=== PATIENT | female | born 1995 | race African-American/Black ===

== ENCOUNTER 2022-11-04 12:50 | Emergency (ER) | payer OTHER ==
[2022-11-04 13:03] VITALS: BP 120/82; PULSE 99; RESP 18; TEMP 98.1; BMI 36.1
[2022-11-04] MEDS ORDERED: ALBUTEROL SO4 2.5/IPRATROPIUM 0.5 INH SOL 3 ML VIAL.NEB. NEB ONE (16:05)
[2022-11-04] MEDS: ALBUTEROL SO4 2.5/IPRATROPIUM 0.5 INH SOL 3 ML VIAL.NEB. NEB SCH (16:12)
== END 2022-11-04 17:03 | disposition home or self-care (01) ==
LOC: JER 12:50 → JERFT 12:50
PROC: 3E0F7GC Introduction of Other Therapeutic Substance into Respiratory Tract, Via Natural or Artificial Opening (ICD-10-PCS; principal; 2022-11-04)
DX: J45.909 Unspecified asthma, uncomplicated (principal); J06.9 Acute upper respiratory infection, unspecified
CPT/HCPCS: 0241U-QW; 71046-TC-FY; 99284-25

== ENCOUNTER 2023-09-04 00:03 | Emergency (ER) | payer OTHER ==
[2023-09-04 00:07] VITALS: BP 122/74; PULSE 88; RESP 20; TEMP 98.6; BMI 30.7
== END 2023-09-04 01:23 | disposition home or self-care (01) ==
LOC: JER 00:03
DX: Z20.822 Contact with and (suspected) exposure to COVID-19 (principal)
CPT/HCPCS: 0241U-QW; 99283-25

== ENCOUNTER 2023-10-30 08:21 | Emergency (ER) | payer OTHER ==
[2023-10-30 08:31] VITALS: BP 101/74; PULSE 74; RESP 18; TEMP 98.7; BMI 35.2
[2023-10-30] MEDS: SODIUM CHLORIDE 0.9% 500 ML INFUS.BAG IV ONE (09:21)
[2023-10-30 09:56] LABS: BASO % 0.8 % (0-2.0); EOS % 0.7 % (0-4.5); HEMATOCRIT 36.8 % (32.4-45.2); HEMOGLOBIN 12.3 GM/dL (10.7-15.3); LYMPH % 34.7 % (8-40); MCH 26.3 pg (25.7-33.7); MCHC 33.5 g/dl (32.0-36.0); MEAN CELL VOLUME 78.4 fl (80-96); MEAN PLT VOLUME 8.9 fl (7.5-11.1); MONO % 7.6 % (3.8-10.2); NEUT % 56.2 % (42.8-82.8); PLATELET COUNT 274 10^3/uL (134-434); RBC 4.69 M/mm3 (3.60-5.2); RDW 14.6 % (11.6-15.6); WHITE BLOOD COUNT 4.3 K/mm3 (4.0-10.0)
[2023-10-30 09:57] LABS: POTASSIUM 3.7 mmol/L (3.5-5.1)
[2023-10-30 09:59] LABS: BLOOD UREA NITROGEN 7.4 mg/dL (7-18); CALCIUM 8.8 mg/dL (8.5-10.1)
[2023-10-30 10:00] LABS: ALBUMIN 3.6 g/dl (3.4-5.0)
[2023-10-30 10:03] LABS: CREATININE 0.7 mg/dL (0.55-1.3)
[2023-10-30 10:05] LABS: BILIRUBIN,TOTAL 0.6 mg/dL (0.2-1); TOT PROT 7.2 g/dl (6.4-8.2)
== END 2023-10-30 11:04 | disposition home or self-care (01) ==
LOC: JER 08:21
DX: E86.0 Dehydration (principal); R42 Dizziness and giddiness; R63.0 Anorexia
CPT/HCPCS: 36415; 80053; 84703; 85025

== ENCOUNTER 2024-09-02 07:56 | Emergency (ER) | payer OTHER ==
[2024-09-02] MEDS ORDERED: ONDANSETRON *ODT* 4 MG TABLET ONE (08:47)
[2024-09-02 08:50] VITALS: BP 108/88; PULSE 70; RESP 16; TEMP 98.6; BMI 37.2
[2024-09-02] MEDS: ONDANSETRON *ODT* 4 MG TABLET SL ONE (08:58)
[2024-09-02] MEDS ORDERED: LOPERAMIDE HCL 2 MG CAPSULE ONE (08:58)
[2024-09-02] MEDS: LOPERAMIDE HCL 2 MG CAPSULE PO ONE (09:01)
[2024-09-02 13:07] LABS: HIV INTERPRETATION NEGATIVE (NEGATIVE)
== END 2024-09-02 10:13 | disposition home or self-care (01) ==
LOC: JER 07:56
DX: K52.9 Noninfective gastroenteritis and colitis, unspecified (principal); R11.2 Nausea with vomiting, unspecified; Z20.822 Contact with and (suspected) exposure to COVID-19
CPT/HCPCS: 0241U-QW; 36415; 86803; 87389; 99283-25; Q0162

== ENCOUNTER 2024-12-03 18:35 | Emergency (ER) | payer OTHER ==
[2024-12-03 18:46] VITALS: BP 121/74; PULSE 81; RESP 20; TEMP 98.1; BMI 37.2
[2024-12-03] MEDS ORDERED: DEXAMETHASONE SOD PHOSPHATE 10 MG/1 ML VIAL ONE (19:25)
[2024-12-03] MEDS: DEXAMETHASONE LIQUID 0.5 MG/5 ML PO ONE (19:32)
[2024-12-03] MEDS: ALBUTEROL SO4 2.5/IPRATROPIUM 0.5 INH SOL 3 ML VIAL.NEB. NEB ONE (19:32)
== END 2024-12-03 21:02 | disposition home or self-care (01) ==
LOC: JER 18:35
PROC: 3E0F7GC Introduction of Other Therapeutic Substance into Respiratory Tract, Via Natural or Artificial Opening (ICD-10-PCS; principal; 2024-12-03)
DX: J45.909 Unspecified asthma, uncomplicated (principal); R07.89 Other chest pain; R06.02 Shortness of breath
CPT/HCPCS: 71045-TC-FY; 99283-25